=== PATIENT | female | born 1965 | race Caucasian/White ===

== ENCOUNTER 2016-09-16 03:35 | Observation (INO) | payer OTHER ==
[2016-09-16 03:59] VITALS: BP 177/108; PULSE 89; RESP 16; TEMP 98.6; O2SAT 99
[2016-09-16] MEDS ORDERED: Sodium Chloride 0.9% 1,000 ML IV STA ×2 (04:04→06:26)
[2016-09-16 04:25] LABS: BASO % 0.2 % (0.0-2.0); EOS % 0.1 % (0.0-4.0); HEMATOCRIT 42.1 % (34.0-47.0); LYMPH # 1.6 K/uL (1.0-4.3); LYMPH % 11.1 % (20.0-40.0); MEAN CELL VOLUME 97.7 fl (81.0-99.0); MEAN CORPUSCULAR HEMOGLOBIN 33.1 pg (27.0-31.0); MEAN CORPUSCULAR HGB CONC 33.8 g/dL (33.0-37.0); MEAN PLATELET VOLUME 9.7 fl (7.2-11.7); MONO # 1.1 K/uL (0.0-0.8); MONO % 7.3 % (0.0-10.0); NEUT # 11.9 K/uL (1.8-7.0); NEUT % 81.3 % (50.0-75.0); RED CELL DISTRIBUTION WIDTH 13.9 % (11.5-14.5); WHITE BLOOD COUNT 14.6 K/uL (4.8-10.8)
[2016-09-16 04:35] LABS: ALB/GLOB RATIO 1.3 (1.0-2.1); ALKALINE PHOSPHATASE 81 U/L (38-126); ALT/SGPT 28 U/L (9-52); AST/SGOT 29 U/L (14-36); BILIRUBIN,TOTAL 0.6 mg/dl (0.2-1.3); BLOOD UREA NITROGEN 16 mg/dl (7-17); CALCIUM 9.7 mg/dL (8.4-10.2); CARBON DIOXIDE 22 mmol/L (22-30); CHLORIDE 108 mmol/L (98-107); GFR AFRICAN-AMERICAN > 60; GLUCOSE,RANDOM 154 mg/dL (65-105); LIPASE 129 U/L (23-300); POTASSIUM 3.5 MMOL/L (3.6-5.0); SODIUM 148 mmol/l (132-148); TOTAL PROTEIN 8.4 G/DL (6.3-8.2)
--- NOTE | 2016-09-16 05:12 | ED PDOC ---
HPI: Abdomen Time Seen by Provider: 09/16/16 03:54 Chief Complaint (Nursing): GI Problem Chief Complaint (Provider): Abdominal pain History Per: Patient History/Exam Limitations: no limitations Onset/Duration Of Symptoms: Hrs (10) Current Symptoms Are (Timing): Still Present Severity: Moderate Location Of Pain/Discomfort: Diffuse Quality Of Discomfort: "Pain" Additional Complaint(s): Serenity Good is a 51 y/o female, with a past medical history of pancreatitis, asthma, gastritis, and COPD, presenting to the ER on 09/16/2016 with acute abdominal pain x10 hours and n/v/d (non-bloody/non-bilious). Patient reports abdominal pain is diffuse. Patient state she has vomited multiple times today prior to arrival. Denies any associated fever, cough, SOB, or CP. Patient reports not being PO tolerant all day. Past Medical History Reviewed: Historical Data, Nursing Documentation, Vital Signs Vital Signs: Last Vital Signs Temp 98.6 F 09/16/16 03:57 Pulse 89 09/16/16 03:57 Resp 16 09/16/16 03:57 BP 177/108 H 09/16/16 03:57 Pulse Ox 99 09/16/16 11:55 - Medical History PMH: Anxiety, Arthritis, Asthma, Depression, Gastritis, HTN, Hyperlipidemia, Malignancy (Uterine Ca s/p hysterectoly), Pancreatitis - Surgical History Surgical History: Cholecystectomy, Hernia Repair, Tonsillectomy - Family History Family History: States: Unknown Family Hx - Social History Current smoker - smoking cessation education provided: No Alcohol: None Drugs: Denies - Home Medications Home Medications: Ambulatory Orders Medication Instructions Recorded Famotidine [Pepcid] 20 mg PO DAILY #14 tab 03/11/16 ALPRAZolam [Xanax] 1 mg PO BID PRN 03/13/16 Albuterol HFA [Ventolin HFA 90 2 puff IH [id number] 05/14/16 mcg/actuation (8 g)] oxyCODONE/Acetaminophen [Percocet 1 tab PO Q6 #5 tab 06/02/16 5/325 mg Tab] Naproxen [Naprosyn Tab] 375 mg PO Q8 #20 tab 07/04/16 Atorvastatin [Lipitor] 40 mg PO HS 07/20/16 Clopidogrel [Plavix] 75 mg PO DAILY 07/20/16 Ondansetron ODT [Zofran ODT] 1 odt PO TID #20 odt 07/21/16 Ondansetron [Zofran] 4 mg PO Q8H PRN #6 tab 07/21/16 - Allergies Allergies/Adverse Reactions: Allergies Allergy/AdvReac Type Severity Reaction Status Date / Time No Known Allergies Allergy Verified 07/20/16 20:01 Review of Systems ROS Statement: Except As Marked, All Systems Reviewed And Found Negative Constitutional: Negative for: Fever Cardiovascular: Negative for: Chest Pain Respiratory: Negative for: Cough, Shortness of Breath Gastrointestinal: Positive for: Nausea, Vomiting, Abdominal Pain, Diarrhea Physical Exam - Reviewed Nursing Documentation Reviewed: Yes Vital Signs Reviewed: Yes - Physical Exam Appears: Positive for: Uncomfortable Head Exam: Positive for: ATRAUMATIC, NORMOCEPHALIC Skin: Positive for: Normal Color Eye Exam: Positive for: Normal appearance, EOMI, PERRL ENT: Positive for: Other (DMM) Neck: Positive for: Normal, Painless ROM, Supple Cardiovascular/Chest: Positive for: Regular Rate, Rhythm. Negative for: Murmur Respiratory: Positive for: Normal Breath Sounds. Negative for: Respiratory Distress Gastrointestinal/Abdominal: Positive for: Tenderness ((+) diffuse) Extremity: Positive for: Normal ROM. Negative for: Deformity Neurologic/Psych: Positive for: Alert, Oriented (x3), Gait (steady). Negative for: Motor/Sensory Deficits - Laboratory Results Result Diagrams: 09/16/16 04:23 09/16/16 04:23 - ECG O2 Sat by Pulse Oximetry: 99 Medical Decision Making Medical Decision Makin:54 Initial Impression- 51 y/o female with acute abdominal pain, n/v/d in setting of known pancreatitis Initial Plan- * EKG * Morphine 4 mg IV * Sodium Chloride 1,000 ml IV * Pepcid 20 mg IV * Zofran 4 mg IV * Urinalysis 06:12 Pt was re-evaluated, still reports persistent pain. Labs reviewed, elevated white count at 14,000 noted. Will administer Promethazine and Morphine. CT Abd/ Pelvis ordered. Documented by Denise Cortez, acting as a scribe for Arsenio Saini MD. All medical record entries made by the Scribe were at my direction and personally dictated by me. I have reviewed the chart and agree that the record accurately reflects my personal performance of the history, physical exam, medical decision making, and the department course for this patient. I have also personally directed, reviewed, and agree with the discharge instructions and disposition. ED OBSERVATION Date of observation admission: 09/16/16 Time of observation admission: 04:45 - Observation admission statement Patient is being placed in observation because:: Secondary to ED workup - Goals of Observation Goals of observation are:: Labs, CT, re-evaluation. - Progress Note Progress Note: 09/16/16 07:00 Signing pt out to Dr. Maribel MD. Pending CT and re-evaluation. Disposition - Clinical Impression Clinical Impression: Abdominal pain, Gastroenteritis - Patient ED Disposition Is Patient to be Admitted: No - Disposition Disposition: Transfer of Care Disposition Time: 07:00 Condition: FAIR Patient Signed Over To: Vaishnavi López
[2016-09-16 06:07] LABS: RBC URINE 2 /hpf (0-3); URINE BILIRUBIN NEGATIVE (NEGATIVE); URINE BLOOD NEGATIVE (NEGATIVE); URINE COLOR YELLOW (YELLOW); URINE GLUCOSE (UA) NEG (Normal); URINE KETONE NEGATIVE (NEGATIVE); URINE LEUKOCYTE ESTERASE NEG Leu/uL (Negative); URINE PROTEIN NEGATIVE (NEGATIVE); URINE UROBILINOGEN 0.2-1.0 mg/dL (0.2-1.0); WBC URINE 1 /hpf (0-5)
[2016-09-16] MEDS ORDERED: Iohexol 240 (50 ml) PO ONE (06:10)
[2016-09-16] MEDS ORDERED: Promethazine 25 MG in Sodium Chloride 0.9% 50 ML IM STA (06:14)
--- NOTE | 2016-09-16 07:08 | ED PDOC ---
- Laboratory Results Result Diagrams: 09/16/16 04:23 09/16/16 04:23 - ECG O2 Sat by Pulse Oximetry: 99 (RA) Pulse Ox Interpretation: Normal Medical Decision Making Medical Decision Makin signed over to me by gunjan Saini MD pending CT, reassessment. 50 - results reviewed with patient. She was sitting upright at the end of her stretcher. She seemed mad at the male auto design detailer who she blamed for bringing her to the ER and making her have a CT scan that she knew would be normal. She wants the heplock out and to be discharged. Disposition Doctor Will See Patient In The: Office - Clinical Impression Clinical Impression: Abdominal pain - POA Present On Arrival: None - Disposition Disposition: Routine/Home Disposition Time: 11:55 Condition: IMPROVED ED OBSERVATION Discharge: Yes Date of observation admission: 09/16/16 Time of observation admission: 04:45 - Progress Note Progress Note: 09/16/16 11:55 improved. see notes in MDM Additional Comments - Additional Comments Additional Comments: Scribe Attestation Documented by Ankit Albert, acting as a scribe for Vaishnavi López MD. Provider Scribe Attestation All medical record entries made by the Scribe were at my direction and personally dictated by me. I have reviewed the chart and agree that the record accurately reflects my personal performance of the history, physical exam, medical decision making, and the department course for this patient. I have also personally directed, reviewed, and agree with the discharge instructions and disposition.
[2016-09-16] MEDS ORDERED: Iohexol 240 (50 ml) ONE (07:50)
--- NOTE | 2016-09-16 08:15 | CARD ---
APPROVED REPORT EKG Measurement Heart [id number] IN 178P85 [id number] <Conclusion> Normal sinus rhythm Incomplete right bundle branch block Prolonged QT Abnormal ECG
[2016-09-16] MEDS ORDERED: Sodium Chloride 0.9% 50 ML IV ONE (08:54)
[2016-09-16] MEDS ORDERED: Iohexol 300 100 ML IJ ONE (08:54)
--- NOTE | 2016-09-16 10:42 | CT ---
PROCEDURE: CT Abdomen and Pelvis with contrast HISTORY: abd pain COMPARISON: Multiple scans dating back to 2010.. TECHNIQUE: Contrast dose: Radiation dose: Total exam DLP = mGy-cm. FINDINGS: LOWER THORAX: Unremarkable. LIVER: Unremarkable. No gross lesion or ductal dilatation. GALLBLADDER AND BILE DUCTS: Unremarkable. PANCREAS: Unremarkable. No gross lesion or ductal dilatation. SPLEEN: Unremarkable. ADRENALS: Stable 1.8 centimeter right adrenal mass. No left adrenal mass. KIDNEYS AND URETERS: Unremarkable. No hydronephrosis. No solid mass. VASCULATURE: Unremarkable. No aortic aneurysm. BOWEL: Unremarkable. No obstruction. No gross mural thickening. APPENDIX: Normal appendix. PERITONEUM: Unremarkable. No free fluid. No free air. LYMPH NODES: Unremarkable. No enlarged lymph nodes. BLADDER: Unremarkable. REPRODUCTIVE: Hysterectomy. BONES: No acute fracture. OTHER FINDINGS: None. IMPRESSION: No acute pathology.
== END 2016-09-16 11:56 | disposition home or self-care (01) ==
LOC: H.ER 03:35 → H.EROBSV 07:24
PROVIDERS: ADMIT Emergency Medicine; ATTEND Emergency Medicine
DX: K52.9 Noninfective gastroenteritis and colitis, unspecified (principal); E78.5 Hyperlipidemia, unspecified; I10 Essential (primary) hypertension; J45.909 Unspecified asthma, uncomplicated; Z85.42 Personal history of malignant neoplasm of other parts of uterus

== ENCOUNTER 2017-03-31 19:55 | Emergency (ER) | payer OTHER ==
[2017-03-31 20:27] VITALS: RESP 18; TEMP 97.8
--- NOTE | 2017-03-31 20:51 | ED PDOC ---
HPI: Abdomen Time Seen by Provider: 03/31/17 20:31 Chief Complaint (Nursing): GI Problem Chief Complaint (Provider): Abdominal pain History Per: Patient Additional Complaint(s): 52 yo female, denies any PMH (on chart review: HTN, High Cholesterol, Gastritis , Depression, uterine CA and Pancreatitis) presents to ED with complaints of epigastric abdominal pain, associated with nausea and vomiting since 4 pm after eating pork. no fever or chills, no diarrhea. Pt tried taking Zofran ODT and pepcid PO without relief. No chest pain, palpitations or SoB. = Patient was seen 03/28/17 at [facility] and worked up for chest pain. Past Medical History Reviewed: Historical Data, Nursing Documentation, Vital Signs Vital Signs: Last Vital Signs Temp 97.8 F 03/31/17 20:23 Pulse 73 03/31/17 22:09 Resp 18 03/31/17 22:09 BP 122/62 03/31/17 22:09 Pulse Ox 98 03/31/17 22:09 - Medical History PMH: Anxiety, Arthritis, Asthma, Depression, Gastritis, HTN, Hyperlipidemia, Malignancy (Uterine Ca s/p hysterectoly), Pancreatitis - Surgical History Surgical History: Cholecystectomy, Hernia Repair, Tonsillectomy - Family History Family History: States: Unknown Family Hx - Immunization History Hx Tetanus Toxoid Vaccination: No Hx Influenza Vaccination: No Hx Pneumococcal Vaccination: No - Home Medications Home Medications: Ambulatory Orders Medication Instructions Recorded Famotidine [Pepcid] 20 mg PO DAILY #14 tab 03/11/16 ALPRAZolam [Xanax] 1 mg PO BID PRN 03/13/16 Albuterol HFA [Ventolin HFA 90 2 puff IH [id number] 05/14/16 mcg/actuation (8 g)] Atorvastatin [Lipitor] 40 mg PO HS 07/20/16 Clopidogrel [Plavix] 75 mg PO DAILY 07/20/16 Esomeprazole Magnesium [Nexium] 20 mg PO DAILY #20 ecc 04/01/17 Ondansetron ODT [Zofran ODT] 4 mg PO Q6 PRN #10 odt 04/01/17 - Allergies Allergies/Adverse Reactions: Allergies Allergy/AdvReac Type Severity Reaction Status Date / Time No Known Allergies Allergy Verified 03/28/17 10:54 Review of Systems ROS Statement: Except As Marked, All Systems Reviewed And Found Negative Gastrointestinal: Positive for: Nausea, Vomiting, Abdominal Pain Physical Exam - Reviewed Nursing Documentation Reviewed: Yes Vital Signs Reviewed: Yes - Physical Exam Appears: Positive for: Non-toxic, No Acute Distress, Uncomfortable Head Exam: Positive for: ATRAUMATIC, NORMAL INSPECTION, NORMOCEPHALIC Skin: Positive for: Normal Color, Warm, DRY Eye Exam: Positive for: EOMI, Normal appearance, PERRL ENT: Positive for: Normal ENT Inspection Neck: Positive for: Normal, Painless ROM Cardiovascular/Chest: Positive for: Regular Rate, Rhythm Respiratory: Positive for: CNT, Normal Breath Sounds Gastrointestinal/Abdominal: Positive for: Bowel Sounds, Soft, Tenderness ( pigastric) Back: Positive for: Normal Inspection Extremity: Positive for: Normal ROM Neurologic/Psych: Positive for: Alert, Oriented - Laboratory Results Result Diagrams: 03/31/17 21:10 03/31/17 21:10 - ECG O2 Sat by Pulse Oximetry: 99 Medical Decision Making Medical Decision Making: EKG: NSR at 65 bpm, incomplete RBBB, Non specific ST changes, as read by ED MD Pt placed on global risk management director: vitals remain stable IV access established and treatment initiated with Pepcid, Zofran, GI cocktail On re-eval, Pt reports nausea and pain continues. 10 mg Reglan administered with 4 mg Morphine Labs resulted and reviewed with pt who demonstrated full understanding Pt reports pain improved, nausea continues. Phenergan 25 mg IM administered Pt reports nausea and vomiting continue. Additional 4 mg zofran administered. Pt advised admission at this time for intractable nausea/ vomiting and abdominal pain. However, Pt refused. Pt reports she needs to go home to care for her mother, if she is still feeling bad she will come back tomorrow after she arranges care for her. Repeat BP: 148/88 Disposition - Clinical Impression Clinical Impression: Gastritis - Patient ED Disposition Is Patient to be Admitted: No - Disposition Referrals: Lianna MONTANO,MD Mattie [Medical Doctor] - Disposition: Against Medical Advice Disposition Time: 01:03 Condition: STABLE Prescriptions: Esomeprazole Magnesium [Nexium] 20 mg PO DAILY #20 ecc Ondansetron ODT [Zofran ODT] 4 mg PO Q6 PRN #10 odt PRN Reason: Nausea/Vomiting Instructions: Gastritis (ED) Forms: [facility] (Amharic) - POA Present On Arrival: None
[2017-03-31] MEDS ORDERED: Alum-Mag Hydrox-Simethicone Susp (30 mL) PO STA (20:52)
[2017-03-31 21:17] LABS: BASO # 0.1 K/uL (0.0-0.2); BASO % 0.6 % (0.0-2.0); EOS # 0.2 K/uL (0.0-0.7); EOS % 1.3 % (0.0-4.0); HEMATOCRIT 40.9 % (34.0-47.0); LYMPH # 1.8 K/uL (1.0-4.3); LYMPH % 13.9 % (20.0-40.0); MEAN CELL VOLUME 97.7 fl (81.0-99.0); MEAN CORPUSCULAR HEMOGLOBIN 32.4 pg (27.0-31.0); MEAN CORPUSCULAR HGB CONC 33.1 g/dL (33.0-37.0); MEAN PLATELET VOLUME 9.7 fl (7.2-11.7); MONO # 0.9 K/uL (0.0-0.8); MONO % 6.8 % (0.0-10.0); NEUT # 10.2 K/uL (1.8-7.0); NEUT % 77.4 % (50.0-75.0); NRBC % 0.1 % (0.0-0.0); RED CELL DISTRIBUTION WIDTH 13.4 % (11.5-14.5); WHITE BLOOD COUNT 13.1 K/uL (4.8-10.8)
[2017-03-31 21:38] LABS: ALB/GLOB RATIO 1.5 (1.0-2.1); ALKALINE PHOSPHATASE 82 U/L (38-126); ALT/SGPT 29 U/L (9-52); AMYLASE 160 U/L (30-110); AST/SGOT 34 U/L (14-36); BILIRUBIN,TOTAL 0.3 mg/dl (0.2-1.3); BLOOD UREA NITROGEN 16 mg/dl (7-17); CALCIUM 9.8 mg/dL (8.4-10.2); CARBON DIOXIDE 26 mmol/L (22-30); CHLORIDE 106 mmol/L (98-107); GFR AFRICAN-AMERICAN > 60; GLUCOSE,RANDOM 137 mg/dL (65-105); LIPASE 175 U/L (23-300); POTASSIUM 3.4 MMOL/L (3.6-5.0); SODIUM 146 mmol/l (132-148)
[2017-03-31] MEDS ORDERED: Sodium Chloride 0.9% 1,000 ML IV STA (21:47)
[2017-03-31 22:09] VITALS: BP 122/62; PULSE 73
[2017-03-31 22:10] LABS: RBC URINE 5 /hpf (0-3); URINE BACTERIA RARE (<OCC); URINE BILIRUBIN NEGATIVE (NEGATIVE); URINE BLOOD SMALL (NEGATIVE); URINE COLOR AMBER (YELLOW); URINE GLUCOSE (UA) NEG (Normal); URINE KETONE 20 mg/dL (NEGATIVE); URINE LEUKOCYTE ESTERASE NEG Leu/uL (Negative); URINE PROTEIN 30 mg/dL (NEGATIVE); URINE UROBILINOGEN 0.2-1.0 mg/dL (0.2-1.0); WBC URINE 1 /hpf (0-5)
[2017-04-01 01:06] VITALS: O2SAT 99
--- NOTE | 2017-04-02 12:51 | CARD ---
APPROVED REPORT EKG Measurement Heart [id number] VT 150P28 [id number] <Conclusion> Normal sinus rhythm Incomplete right bundle branch block ST & Marked T wave abnormality, consider anterolateral ischemia Prolonged QT Abnormal ECG
== END 2017-04-01 01:26 | disposition left against medical advice (07) ==
LOC: H.ER 19:55
DX: K29.70 Gastritis, unspecified, without bleeding (principal); I10 Essential (primary) hypertension; E78.00 Pure hypercholesterolemia, unspecified; K86.1 Other chronic pancreatitis; C54.1 Malignant neoplasm of endometrium
CPT/HCPCS: 80053; 81003; 82150; 83690; 84484; 85025; 93005; 96361; 96372; 96374; 96375; 96376; 99285; J2270; J2405; J2550; J2765; J7040

== ENCOUNTER 2017-07-20 10:28 | Emergency (ER) | payer OTHER ==
[2017-07-20 10:52] VITALS: BMI 23.8
[2017-07-20] MEDS ORDERED: Sodium Chloride 0.9% 1,000 ML IV STA (11:00)
[2017-07-20] MEDS ORDERED: Iohexol 240 (50 ml) PO ONE (11:05)
[2017-07-20] MEDS ORDERED: Morphine 4 MG/ML VIAL IV ONE (11:07)
--- NOTE | 2017-07-20 11:10 | ED PDOC ---
HPI: Abdomen Time Seen by Provider: 07/20/17 10:46 Chief Complaint (Nursing): Abdominal Pain Chief Complaint (Provider): Abdominal Pain History Per: Family History/Exam Limitations: no limitations Onset/Duration Of Symptoms: Hrs Current Symptoms Are (Timing): Still Present Additional Complaint(s): 52 year old female presents to the emergency department with a complaint of an abdominal pain, vomiting, and diarrhea since 4am. As per family, they were all eating pizza and when patient vomited, that is what she saw. Denies blood in vomit, cough, congestion, runny nose, chest pain, and shortness of breath. No one else is sick in the family. Of note, as per family, patient has experienced similar symptoms in the past and is always diagnosed with gastritis. Past Medical History Reviewed: Historical Data, Nursing Documentation, Vital Signs - Medical History PMH: Anxiety, Arthritis, Asthma, Depression, Gastritis, HTN, Hyperlipidemia, Malignancy (Uterine Ca s/p hysterectoly), Pancreatitis - Surgical History Surgical History: Cholecystectomy, Hernia Repair, Tonsillectomy - Family History Family History: States: Unknown Family Hx - Immunization History Hx Tetanus Toxoid Vaccination: No Hx Influenza Vaccination: No Hx Pneumococcal Vaccination: No - Home Medications Home Medications: Ambulatory Orders Medication Instructions Recorded Famotidine [Pepcid] 20 mg PO DAILY #14 tab 03/11/16 ALPRAZolam [Xanax] 1 mg PO BID PRN 03/13/16 Albuterol HFA [Ventolin HFA 90 2 puff IH [id number] 05/14/16 mcg/actuation (8 g)] Atorvastatin [Lipitor] 80 mg PO HS 07/20/16 Esomeprazole Magnesium [Nexium] 20 mg PO DAILY #20 ecc 04/01/17 Ondansetron ODT [Zofran ODT] 4 mg PO Q6 PRN #10 odt 04/01/17 Prasugrel [Effient] 10 mg PO DAILY 04/02/17 - Allergies Allergies/Adverse Reactions: Allergies Allergy/AdvReac Type Severity Reaction Status Date / Time No Known Allergies Allergy Verified 03/28/17 10:54 Review of Systems ROS Statement: Except As Marked, All Systems Reviewed And Found Negative (As per HPI, otherwise negative) ENT: Negative for: Nose Discharge, Nose Congestion Cardiovascular: Negative for: Chest Pain Respiratory: Negative for: Cough, Shortness of Breath Gastrointestinal: Positive for: Vomiting, Abdominal Pain, Diarrhea. Negative for: Hematochezia Physical Exam - Reviewed Nursing Documentation Reviewed: Yes Vital Signs Reviewed: Yes - Physical Exam Appears: Positive for: Non-toxic, No Acute Distress Head Exam: Positive for: NORMAL INSPECTION Skin: Positive for: Normal Color, Warm, Dry Cardiovascular/Chest: Positive for: Regular Rate, Rhythm. Negative for: Murmur Respiratory: Positive for: Normal Breath Sounds. Negative for: Accessory Muscle Use, Respiratory Distress Gastrointestinal/Abdominal: Positive for: Soft, Tenderness (Diffuse tenderness) . Negative for: Normal Exam Back: Positive for: Normal Inspection. Negative for: L CVA Tenderness, R CVA Tenderness Extremity: Positive for: Normal ROM. Negative for: Pedal Edema Neurologic/Psych: Positive for: Alert, Oriented (x3) - Laboratory Results Result Diagrams: 07/20/17 11:15 07/20/17 11:15 Interpretation Of Abn Labs: no acute - ECG ECG Rhythm: Positive for: Right Bundle Branch Block (incomplete) - Progress ED Course And Treament: 1447: Stable. Dr. Kirby cuevas on ct read. Pt. doing well. Walking around. No nausea/vomit/diarrhea. Medical Decision Making Medical Decision Making: Time: 1102 Initial Impression: Abdominal pain and vomiting Initial Plan: --EKG --CMP --Lipase --Troponin I --Urine DIP --CBC w. diff --Bentyl 10 mg PO --Pepcid 20 mg IVP --Toradol 15 mg IVP --Sodium Chloride 15 mg IVP --Zofran 4 mg IV --Dilaudid 1 mg IV --Reglan 10 mg IV --Morphine 4 mg IV --Abd & pelvis PO & IV Contrast CT --Reevaluation Scribe Attestation: Documented by Abby Torres, acting as a scribe for Anurag Cortez MD. Provider Scribe Attestation: All medical record entries made by the Scribe were at my direction and personally dictated by me. I have reviewed the chart and agree that the record accurately reflects my personal performance of the history, physical exam, medical decision making, and the department course for this patient. I have also personally directed, reviewed, and agree with the discharge instructions and disposition. Disposition - Clinical Impression Clinical Impression: Abdominal discomfort - Patient ED Disposition Is Patient to be Admitted: Transfer of Care - Disposition Disposition Time: 14:48 Condition: STABLE Patient Signed Over To: Kelly Orr
[2017-07-20] MEDS ORDERED: Iohexol 240 (50 ml) ONE (11:28)
[2017-07-20 11:33] LABS: BASO % 0.4 % (0.0-2.0); EOS % 0.2 % (0.0-4.0); HEMOGLOBIN 13.5 g/dL (12.0-16.0); LYMPH # 1.2 K/uL (1.0-4.3); LYMPH % 12.4 % (20.0-40.0); MEAN CELL VOLUME 97.6 fl (81.0-99.0); MEAN CORPUSCULAR HEMOGLOBIN 31.8 pg (27.0-31.0); MEAN CORPUSCULAR HGB CONC 32.6 g/dL (33.0-37.0); MEAN PLATELET VOLUME 9.3 fl (7.2-11.7); MONO # 0.3 K/uL (0.0-0.8); MONO % 3.4 % (0.0-10.0); NEUT # 8.2 K/uL (1.8-7.0); NEUT % 83.6 % (50.0-75.0); NRBC % 0.1 % (0.0-0.0); RBC 4.23 Mil/uL (3.80-5.20); RED CELL DISTRIBUTION WIDTH 13.9 % (11.5-14.5); WHITE BLOOD COUNT 9.9 K/uL (4.8-10.8)
[2017-07-20 11:42] LABS: ALB/GLOB RATIO 1.4 (1.0-2.1); ALBUMIN 4.8 g/dL (3.5-5.0); ALT/SGPT 27 U/L (9-52); AST/SGOT 22 U/L (14-36); BLOOD UREA NITROGEN 16 mg/dl (7-17); CALCIUM 9.8 mg/dL (8.4-10.2); GFR AFRICAN-AMERICAN > 60; GFR NON-AFRICAN AMERICAN > 60; LIPASE 135 U/L (23-300)
[2017-07-20] MEDS ORDERED: Iohexol 300 100 ML IJ ONE (13:55)
[2017-07-20] MEDS ORDERED: Sodium Chloride 0.9% 50 ML IV ONE (13:55)
--- NOTE | 2017-07-20 15:15 | ED PDOC ---
- Laboratory Results Result Diagrams: 07/20/17 11:15 07/20/17 11:15 Medical Decision Making Medical Decision Making: Time: --15:00 Reassess --Patient signed out to the provider by Dr. Cortez pending ER workup, labs, reevaluation, and final disposition 345p Pt upset about length of stay and time for result of CT scan (performed at 2:30) . CT result still pending. She reports feeling better and would like to go home. Advised her to stay until CT resulted in case acute pathology requiring further management, hospitalization, or other treatment. Pt wants to leave anyway, Risks/benefits discussed and she wants to leave anyway. AMA signed. Scribe Attestation: Documented by Trung Ardon acting as a scribe for Kelly Orr MD. Provider Attestation: All medical record entries made by the Scribe were at my direction and personally dictated by me. I have reviewed the chart and agree that the record accurately reflects my personal performance of the history, physical exam, medical decision making, and the department course for this patient. I have also personally directed, reviewed, and agree with the discharge instructions and disposition. Disposition - Clinical Impression Clinical Impression: Abdominal discomfort - POA Present On Arrival: None - Disposition Disposition: AGAINST MEDICAL ADVICE Disposition Time: 15:53 Condition: UNKNOWN Additional Instructions: RETURN TO ER IMMEDIATELY FOR FURTHER EVALUATION OR FOLLOW UP WITH YOUR DOCTOR SOON POSSIBLE Instructions: Abdominal Pain (ED), Against Medical Advice (ED) Against Medical Advice - AMA Patient Left Against Medical Advice: The patient declines admission to the hospital and wishes to leave the Emergency Department. This action is against my medical advice. This decision was made with informed refusal. The patient was told that admission to the hospital is necessary. Explanation of the reasons why were discussed. The risks of leaving were explained to the patient and include, but are not limited to, worsening of known or currently unknown conditions, permanent disability and from undiagnosed or untreated conditions. The patient has the capacity to make this informed decision and understands my explanation of the current medical problem and risks of leaving. The patient voluntarily accepts these risks and signed an AMA form documenting our conversation. The patient was given the opportunity to ask questions and reconsider. The patient was encouraged to return to the Emergency Department at any time for further care.
[2017-07-20 16:42] VITALS: BP 136/85; PULSE 88; RESP 16; O2SAT 100
--- NOTE | 2017-07-20 16:43 | CT ---
PROCEDURE: CT scan abdomen pelvis dated 07/20/2017 HISTORY: Abdominal pain COMPARISON: Comparison made with prior CT scan abdomen pelvis 09/16/2016 TECHNIQUE: Contiguous axial images of the abdomen and pelvis performed following oral and intravenous injection of approximately 95 cc Omnipaque 300 contrast material. Additional 2 dimensional sagittal and coronal reformats generated. Radiation dose: Total exam DLP = 317.4 mGy-cm. This CT exam was performed using one or more of the following dose reduction techniques: Automated exposure control, adjustment of the mA and/or kV according to patient size, and/or use of iterative reconstruction technique. FINDINGS: LOWER THORAX: Mild minor passive/ dependent type atelectasis both posterior lower lung zones. There appears to be some linear/curvilinear scarring changes seen in the left lung base and probably in the middle lobe and lingular regions. Heart size within range of normal. No significant pericardial effusion. LIVER: Liver exhibits normal size measuring approximately 15 point 3 cm in CC dimension. 1 or 2 tiny foci seen within the superior margin of the right lobe liver too small to characterize stable. . . Mild diffuse fatty hepatic infiltration. Portal and splenic veins are opacified. GALLBLADDER AND BILE DUCTS: Gallbladder is physiologically distended. No evidence of intraluminal gallbladder calculi. PANCREAS: The pancreas appears grossly unremarkable. SPLEEN: Spleen demonstrates normal size and attenuation pattern without masses collections or calcifications. . ADRENALS: No change left adrenal nodule measuring approximately 9 mm. KIDNEYS AND URETERS: Kidneys demonstrate symmetric nephrograms. No evidence of nephrolithiasis or hydronephrosis. BLADDER: Urinary bladder is incompletely distended which presumably accounts for slight thick-walled appearance. Possibility of a cystitis not excluded. . REPRODUCTIVE: Unremarkable. Uterus is not seen and presumably has been resected however clinical correlation recommended. APPENDIX: Appendix is not seen with any certainty. No obvious inflammatory changes right lower quadrant of the abdomen to suggest acute appendicitis. BOWEL: Evaluation of the bowel is limited due to incomplete opacification. Stomach is unopacified and underdistended which presumably accounts for slight thick-walled appearance. Visualized loops of small bowel exhibit normal contour and caliber. No evidence of acute mechanical small bowel obstruction with oral contrast material seen extending into the colon to the level of the mid to distal sigmoid colon. No definitive abnormal mural wall thickening is identified. PERITONEUM: Unremarkable. No fluid collection. No free air. LYMPH NODES: Unremarkable. No enlarged lymph nodes. VASCULATURE: Unremarkable. No aortic aneurysm. BONES: Interval progression of degenerative spondylosis with further disc space narrowing at the L4-L5 level. OTHER FINDINGS: None. IMPRESSION: No acute intra abdominal pathology. No change small left adrenal nodule measuring approximately 9 mm. One or 2 tiny foci low-attenuation liver superior aspect right lobe liver too small to characterize stable. The appendix again not visualized however clinical correlation recommended. . . . . Status post hysterectomy.
== END 2017-07-20 16:20 | disposition left against medical advice (07) ==
LOC: H.ER 10:28
DX: R10.9 Unspecified abdominal pain (principal); I45.10 Unspecified right bundle-branch block; E78.5 Hyperlipidemia, unspecified; I10 Essential (primary) hypertension; Z85.42 Personal history of malignant neoplasm of other parts of uterus; Z90.710 Acquired absence of both cervix and uterus
CPT/HCPCS: 74177; 80053; 82948; 83690; 85025; 96374; 99284; J1170; J2405; J2765; J7040; Q9966; Q9967

== ENCOUNTER 2017-07-23 07:05 | Emergency (ER) | payer OTHER ==
[2017-07-23 07:11] VITALS: BMI 20.1
--- NOTE | 2017-07-23 07:40 | ED PDOC ---
HPI: CCC, URI, Sore Throat Time Seen by Provider: 07/23/17 07:15 Chief Complaint (Nursing): Flu-like Symptoms History Per: Patient History/Exam Limitations: no limitations Onset/Duration Of Symptoms: Days (3), Gradual Current Symptoms Are (Timing): Still Present Location Of Pain: Throat, Diffuse Myalgias Sick Contacts (Context): None Associated Symptoms: Fever, Chills, Cough, Myalgias, Nasal Congestion. denies: Sputum, Neck Pain, Sinus Drainage, Nausea, Vomiting, Diarrhea Severity: Moderate Additional History Per: Patient Additional Complaint(s): Pt reports flu like symptoms beginning Saturday including MARINELLI, body aches, fever , N/V. took tylenol 2 hours ago Past Medical History Reviewed: Historical Data, Nursing Documentation, Vital Signs Vital Signs: Last Vital Signs Temp 98.3 F 07/23/17 10:06 Pulse 73 07/23/17 10:06 Resp 20 07/23/17 10:06 BP 129/64 07/23/17 10:06 Pulse Ox 99 07/23/17 10:06 - Medical History PMH: Anxiety, Arthritis, Asthma, Depression, Gastritis, HTN, Hypercholesterolemia, Hyperlipidemia, Malignancy (Uterine Ca s/p hysterectoly), Pancreatitis - Surgical History Surgical History: Cholecystectomy, Hernia Repair, Tonsillectomy - Family History Family History: States: Unknown Family Hx - Living Arrangements Living Arrangements: With Family - Social History Current smoker - smoking cessation education provided: No - Immunization History Hx Tetanus Toxoid Vaccination: No Hx Influenza Vaccination: No Hx Pneumococcal Vaccination: No - Home Medications Home Medications: Ambulatory Orders Medication Instructions Recorded Famotidine [Pepcid] 20 mg PO DAILY #14 tab 03/11/16 ALPRAZolam [Xanax] 1 mg PO BID PRN 03/13/16 Albuterol HFA [Ventolin HFA 90 2 puff IH [id number] 05/14/16 mcg/actuation (8 g)] Atorvastatin [Lipitor] 80 mg PO HS 07/20/16 Esomeprazole Magnesium [Nexium] 20 mg PO DAILY #20 ecc 04/01/17 Ondansetron ODT [Zofran ODT] 4 mg PO Q6 PRN #10 odt 04/01/17 Prasugrel [Effient] 10 mg PO DAILY 04/02/17 Azithromycin [Zithromax] 250 mg PO DAILY 4 Days tab 07/23/17 Oseltamivir Phosphate [Tamiflu] 75 mg PO BID 5 Days capsule 07/23/17 - Allergies Allergies/Adverse Reactions: Allergies Allergy/AdvReac Type Severity Reaction Status Date / Time No Known Allergies Allergy Verified 03/28/17 10:54 Review of Systems ROS Statement: Except As Marked, All Systems Reviewed And Found Negative Constitutional: Positive for: Fever, Chills, Malaise ENT: Positive for: Nose Congestion Cardiovascular: Negative for: Chest Pain, Palpitations Respiratory: Positive for: Cough. Negative for: Shortness of Breath, Sputum Gastrointestinal: Negative for: Nausea, Vomiting, Abdominal Pain Genitourinary Female: Negative for: Dysuria Musculoskeletal: Negative for: Neck Pain Neurological: Positive for: Headache. Negative for: Weakness, Numbness, Incoordination, Change in Speech, Confusion, Altered Mental Status, Dizziness Physical Exam - Reviewed Nursing Documentation Reviewed: Yes Vital Signs Reviewed: Yes - Physical Exam Appears: Positive for: Uncomfortable Head Exam: Positive for: ATRAUMATIC, NORMAL INSPECTION, NORMOCEPHALIC Skin: Positive for: Normal Color, Warm, Dry Eye Exam: Positive for: Normal appearance, EOMI, PERRL ENT: Positive for: Pharynx Is (cml). Negative for: Pharyngeal Erythema, Tonsillar Exudate, Tonsillar Swelling Neck: Positive for: Normal, Painless ROM, Supple Cardiovascular/Chest: Positive for: Regular Rate, Rhythm. Negative for: Chest Non Tender, Edema, Gallop, Murmur, Bradycardia, Tachycardia Respiratory: Positive for: Normal Breath Sounds. Negative for: Decreased Breath Sounds, Accessory Muscle Use, Crackles, Rales, Rhonchi, Stridor, Wheezing , Respiratory Distress, Plerual Rub Gastrointestinal/Abdominal: Positive for: Normal Exam, Bowel Sounds, Soft. Negative for: Tenderness Back: Positive for: Normal Inspection. Negative for: L CVA Tenderness, R CVA Tenderness Extremity: Positive for: Normal ROM. 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 Negative for: Motor/Sensory Deficits, Aphasia, Facial Droop - Laboratory Results Result Diagrams: 07/23/17 08:02 07/23/17 08:02 - ECG ECG: Positive for: Interpreted By Me ECG Rhythm: Positive for: Normal QRS, Normal ST Segment, Sinus Rhythm (59). Negative for: ST/T Changes Interpretation Of Abn EKG: abnml ecg w/o change compared to 07/20/2017 O2 Sat by Pulse Oximetry: 98 Pulse Ox Interpretation: Normal - Radiology X-Ray: Interpreted by Me X-Ray Interpretation: Infiltrates (possible eraly in rml no cardiomegaly) - Progress ED Course And Treament: sx improved will treatment for possible underlying pna with zithromax advise tamiflu, pt sx markedly improved and agree's with plan will leaves in good spirits. Re-evaluation Time: 10:00 Condition: Improved Disposition - Clinical Impression Clinical Impression: Influenza, Pneumonia - Patient ED Disposition Is Patient to be Admitted: No Counseled Patient/Family Regarding: Studies Performed, Diagnosis, Need For Followup, Rx Given - Disposition Referrals: [facility] [Outside] (2 to 3 days) Disposition: Routine/Home Disposition Time: 10:00 Condition: GOOD Prescriptions: Azithromycin [Zithromax] 250 mg PO DAILY 4 Days tab Oseltamivir Phosphate [Tamiflu] 75 mg PO BID 5 Days capsule Instructions: Bacterial Pneumonia (ED), Influenza (ED) Forms: [employer] (Austrian)
[2017-07-23] MEDS: Sodium Chloride 0.9% 1,000 ML IV ONE (07:57)
[2017-07-23 08:07] LABS: BASO % 0.6 % (0.0-2.0); EOS % 0.1 % (0.0-4.0); HEMOGLOBIN 12.7 g/dL (12.0-16.0); LYMPH # 0.3 K/uL (1.0-4.3); LYMPH % 6.1 % (20.0-40.0); MEAN CELL VOLUME 96.3 fl (81.0-99.0); MEAN CORPUSCULAR HEMOGLOBIN 32.5 pg (27.0-31.0); MEAN CORPUSCULAR HGB CONC 33.7 g/dL (33.0-37.0); MEAN PLATELET VOLUME 9.5 fl (7.2-11.7); MONO # 0.4 K/uL (0.0-0.8); MONO % 6.8 % (0.0-10.0); NEUT # 4.6 K/uL (1.8-7.0); NEUT % 86.4 % (50.0-75.0); NRBC % 0.1 % (0.0-0.0); PLATELET COUNT 158 K/uL (130-400); RBC 3.91 Mil/uL (3.80-5.20); WHITE BLOOD COUNT 5.4 K/uL (4.8-10.8)
[2017-07-23 08:24] LABS: INR 1.3 (0.9-1.2); PARTIAL THROMBOPLASTIN TIME 36.3 Seconds (25.6-37.1); PROTHROMBIN TIME 14.1 Seconds (9.8-13.1)
--- NOTE | 2017-07-23 08:27 | CARD ---
APPROVED REPORT EKG Measurement Heart [id number] PA 130P46 [id number] <Conclusion> Normal sinus rhythm Nonspecific T wave abnormality Abnormal ECG
[2017-07-23 08:29] LABS: ALB/GLOB RATIO 1.3 (1.0-2.1); ALBUMIN 4.3 g/dL (3.5-5.0); ALT/SGPT 28 U/L (9-52); AST/SGOT 24 U/L (14-36); BLOOD UREA NITROGEN 11 mg/dl (7-17); GFR AFRICAN-AMERICAN > 60; GFR NON-AFRICAN AMERICAN > 60
[2017-07-23 10:07] VITALS: BP 129/64; PULSE 73; RESP 20; TEMP 98.3
[2017-07-23 10:18] LABS: BANDS 2 % (0-2); BASOPHIL 1 % (0-2); LYMPHOCYTE 11 % (20-50); MONOCYTE 6 % (0-10); NEUTROPHIL 80 % (42-75); TOTAL CELLS COUNTED 100
[2017-07-23 10:21] LABS: PLATELET ESTIMATE NORMAL (NORMAL)
[2017-07-23 11:03] VITALS: O2SAT 98
--- NOTE | 2017-07-23 11:06 | RAD ---
HISTORY: COMPARISON: No prior. TECHNIQUE: Chest PA and lateral FINDINGS: LINES AND TUBES: None. LUNG AND PLEURA: The lungs are hyperinflated and there is peribronchial thickening with chronic changes in both lungs. There is no lobar pneumonia. HEART AND MEDIASTINUM: The heart is not enlarged. The hilar and mediastinal contours are within normal limits. SKELETAL STRUCTURES: The bony structures are within normal limits for the patient's age. VISUALIZED UPPER ABDOMEN: Normal. OTHER FINDINGS: None. IMPRESSION: No active pulmonary disease. COPD.
== END 2017-07-23 11:20 | disposition home or self-care (01) ==
LOC: H.ER 07:05
DX: J11.00 Influenza due to unidentified influenza virus with unspecified type of pneumonia (principal); J18.9 Pneumonia, unspecified organism; E78.00 Pure hypercholesterolemia, unspecified; F32.9 Major depressive disorder, single episode, unspecified; F41.9 Anxiety disorder, unspecified; I10 Essential (primary) hypertension; J44.0 Chronic obstructive pulmonary disease with (acute) lower respiratory infection; K85.90 Acute pancreatitis without necrosis or infection, unspecified; Z85.42 Personal history of malignant neoplasm of other parts of uterus
CPT/HCPCS: 71046; 80053; 83605; 84484; 85025; 85610; 85730; 87070; 87430; 87804; 93005; 96361; 96365; 99285; J0696; J7040

== ENCOUNTER 2017-12-12 20:41 | Emergency (ER) | payer OTHER ==
[2017-12-12 20:41] VITALS: BMI 20.1
[2017-12-12 20:50] VITALS: O2SAT 99
[2017-12-12] MEDS ORDERED: Famotidine 20mg/50ml 20 MG/50 ML BAG IVPB ONE (21:16)
[2017-12-12] MEDS ORDERED: Famotidine 20mg/50ml Premix IVPB STA (21:18)
[2017-12-12] MEDS ORDERED: Sodium Chloride 0.9% 1,000 ML IV STA (21:18)
--- NOTE | 2017-12-12 21:25 | ED PDOC ---
HPI: Abdomen Time Seen by Provider: 12/12/17 21:14 Chief Complaint (Nursing): Abdominal Pain History Per: Patient History/Exam Limitations: no limitations Onset/Duration Of Symptoms: Hrs Outside of [place] travel?: No Current Symptoms Are (Timing): Still Present Context: Food Location Of Pain/Discomfort: Epigastric Quality Of Discomfort: Burning, Stabbing Associated Symptoms: Nausea, Vomiting, Diarrhea Additional Complaint(s): HX of COPD, colon CA s/p resection, gastritis, pancreatitis presenting with epigastric pain, nausea, vomiting, diarrhea, and anxiety. States it started this afternoon, worsened after eating dinner, was associated with 7 episodes of non bloody non bilious vomiting and watery diarrhea. Denies alcohol usage or drugs. Patient poor historian, history obtain mostly from . PMD: patient reports none Past Medical History Reviewed: Historical Data, Nursing Documentation, Vital Signs Vital Signs: Last Vital Signs Temp 97.9 F 12/12/17 20:46 Pulse 69 12/12/17 20:46 Resp 30 H 12/12/17 20:46 BP 149/87 12/12/17 20:46 Pulse Ox 99 12/13/17 00:34 - Medical History PMH: Anxiety, Arthritis, Asthma, Depression, Gastritis, HTN, Hypercholesterolemia, Hyperlipidemia, Malignancy (Uterine Ca s/p hysterectoly), Pancreatitis - Surgical History Surgical History: Cholecystectomy, Hernia Repair, Tonsillectomy - Family History Family History: States: Unknown Family Hx - Immunization History Hx Tetanus Toxoid Vaccination: No Hx Influenza Vaccination: No Hx Pneumococcal Vaccination: No - Home Medications Home Medications: Ambulatory Orders Medication Instructions Recorded Famotidine [Pepcid] 20 mg PO DAILY #14 tab 03/11/16 ALPRAZolam [Xanax] 1 mg PO BID PRN 03/13/16 Albuterol HFA [Ventolin HFA 90 2 puff IH [id number] 05/14/16 mcg/actuation (8 g)] Atorvastatin [Lipitor] 80 mg PO HS 07/20/16 Ondansetron ODT [Zofran ODT] 4 mg PO Q6 PRN #10 odt 04/01/17 Prasugrel [Effient] 10 mg PO DAILY 04/02/17 Metoclopramide [Reglan] 1 tab PO TID PRN #25 tab 07/25/17 Aluminum Hydroxide/Magnesium 30 ml PO BID PRN #1 bottle 10/25/17 [Maalox Plus 30 ml] Omeprazole 20 mg PO DAILY #30 capsule. 12/13/17 - Allergies Allergies/Adverse Reactions: Allergies Allergy/AdvReac Type Severity Reaction Status Date / Time No Known Allergies Allergy Verified 10/25/17 21:20 Review of Systems Constitutional: Negative for: Fever Respiratory: Negative for: Cough Gastrointestinal: Positive for: Nausea, Vomiting, Abdominal Pain, Diarrhea Genitourinary Female: Negative for: Dysuria, Frequency, Incontinence, Hematuria Physical Exam - Reviewed Nursing Documentation Reviewed: Yes Vital Signs Reviewed: Yes - Physical Exam Appears: Positive for: Uncomfortable (wretching) Head Exam: Positive for: ATRAUMATIC, NORMAL INSPECTION, NORMOCEPHALIC Skin: Positive for: Normal Color, Warm, DRY Eye Exam: Positive for: EOMI, Normal appearance, PERRL ENT: Positive for: Normal ENT Inspection Neck: Positive for: Normal, Painless ROM Cardiovascular/Chest: Positive for: Regular Rate, Rhythm Respiratory: Positive for: CNT, Normal Breath Sounds Gastrointestinal/Abdominal: Positive for: Normal Exam, Soft, Tenderness ( epigastric tenderness, no lower abdominal tenderness). Negative for: Organomegaly, Mass, Distended, Guarding, Rebound Back: Positive for: Normal Inspection Extremity: Positive for: Normal ROM Neurologic/Psych: Positive for: Alert, hot patcher II-XII, Oriented. Negative for: Motor/Sensory Deficits - Laboratory Results Result Diagrams: 12/12/17 21:26 12/12/17 21:26 - ECG O2 Sat by Pulse Oximetry: 99 Pulse Ox Interpretation: Normal Medical Decision Making Medical Decision MakinPM A/P: Hx of colon CA, gastritis, COPD, pancreatitis presenting with nausea, vomiting, diarrhea, abdominal pain -patient actively vomiting, uncomfortable appearance -ddx: gerd/gastritis, pancreatitis, colitis, not suspicious for appendicitis or cholecystitis or sbo at this time -will get labs, provide sympomatic care -reeval 11PM -Haldol given for intractable nausea for hyperemesis cannabinoid syndrome 0000 Patient is now feeling much better, tolerating PO, will d/c home. Advised bland diet, fliuds, adn followup with a PMD. Disposition - Clinical Impression Clinical Impression: Gastritis - Patient ED Disposition Is Patient to be Admitted: No - Disposition Referrals: [facility] [Outside] [facility] [place] [Outside] Disposition: Routine/Home Disposition Time: 00:35 Condition: STABLE Prescriptions: Omeprazole 20 mg PO DAILY #30 capsule. Instructions: Gastritis Forms: [employer] (Tanzanian)
[2017-12-12 21:30] LABS: BASO # 0.1 K/uL (0.0-0.2); BASO % 0.5 % (0.0-2.0); EOS # 0.2 K/uL (0.0-0.7); EOS % 1.4 % (0.0-4.0); HEMOGLOBIN 13.8 g/dL (12.0-16.0); LYMPH # 2.7 K/uL (1.0-4.3); LYMPH % 19.7 % (20.0-40.0); MEAN CELL VOLUME 97.2 fl (81.0-99.0); MEAN CORPUSCULAR HEMOGLOBIN 32.8 pg (27.0-31.0); MEAN CORPUSCULAR HGB CONC 33.7 g/dL (33.0-37.0); MEAN PLATELET VOLUME 8.9 fl (7.2-11.7); MONO # 0.8 K/uL (0.0-0.8); MONO % 5.7 % (0.0-10.0); NEUT # 9.8 K/uL (1.8-7.0); NEUT % 72.7 % (50.0-75.0); RBC 4.22 Mil/uL (3.80-5.20); RED CELL DISTRIBUTION WIDTH 13.6 % (11.5-14.5); WHITE BLOOD COUNT 13.5 K/uL (4.8-10.8)
[2017-12-12 21:40] LABS: ALB/GLOB RATIO 1.3 (1.0-2.1); ALBUMIN 4.5 g/dL (3.5-5.0); ALT/SGPT 28 U/L (9-52); AST/SGOT 29 U/L (14-36); BLOOD UREA NITROGEN 15 mg/dl (7-17); CALCIUM 9.6 mg/dL (8.4-10.2); GFR AFRICAN-AMERICAN > 60; GFR NON-AFRICAN AMERICAN > 60; LIPASE 192 U/L (23-300)
[2017-12-13 01:08] VITALS: BP 146/54; PULSE 80; RESP 16; TEMP 98.5
[2017-12-13] MEDS ORDERED: metroNIDAZOLE 500mg/100ml NS 100 ML IVPB ONE (12:30)
== END 2017-12-13 01:10 | disposition home or self-care (01) ==
LOC: H.ER 20:41
DX: K29.70 Gastritis, unspecified, without bleeding (principal); R10.13 Epigastric pain; K85.90 Acute pancreatitis without necrosis or infection, unspecified; Z85.038 Personal history of other malignant neoplasm of large intestine; J44.9 Chronic obstructive pulmonary disease, unspecified; Z85.42 Personal history of malignant neoplasm of other parts of uterus; E78.00 Pure hypercholesterolemia, unspecified; F32.9 Major depressive disorder, single episode, unspecified; F41.9 Anxiety disorder, unspecified; I10 Essential (primary) hypertension
CPT/HCPCS: 80053; 80320; 83690; 85025; 96361; 96365; 96367; 96372; 96375; 99283; J1630; J2060; J2405; J2765; J7030

== ENCOUNTER 2017-12-13 07:14 | Inpatient (IN) | payer OTHER ==
[2017-12-13 07:21] VITALS: BMI 21.9
[2017-12-13] MEDS ORDERED: Famotidine 20mg/50ml Premix IVPB STA (07:35)
[2017-12-13] MEDS ORDERED: Sodium Chloride 0.9% 1,000 ML IV STA (07:36)
--- NOTE | 2017-12-13 07:40 | ED PDOC ---
HPI: Abdomen Time Seen by Provider: 12/13/17 07:21 Chief Complaint (Nursing): Abdominal Pain Chief Complaint (Provider): Abd pain History Per: Patient History/Exam Limitations: no limitations Onset/Duration Of Symptoms: Days (2) Current Symptoms Are (Timing): Still Present Additional Complaint(s): Pt. with abd pain epigastric, nausea, vomit that is nonbloody. Here yesterday night with the same and discharge after feeling better. No imaging done. Pt. here multiple times for the same. No weakness, headaches, dizziness, back pain , chest pain. No fever, cough. No new food. feels like her pancreatitis. Has no pcp or GI doctor. Past Medical History Reviewed: Nursing Documentation, Vital Signs Vital Signs: Last Vital Signs Temp 98.8 F 12/13/17 07:20 Pulse 82 12/13/17 07:20 Resp BP 153/79 H 12/13/17 07:20 Pulse Ox 98 12/13/17 09:59 - Medical History PMH: Anxiety, Arthritis, Asthma, Depression, Gastritis, HTN, Hypercholesterolemia, Hyperlipidemia, Malignancy (Uterine Ca s/p hysterectoly), Pancreatitis - Surgical History Surgical History: Cholecystectomy, Coronary Stent (2), Hernia Repair, Tonsillectomy - Family History Family History: States: Unknown Family Hx - Immunization History Hx Tetanus Toxoid Vaccination: No Hx Influenza Vaccination: No Hx Pneumococcal Vaccination: No - Home Medications Home Medications: Ambulatory Orders Medication Instructions Recorded ALPRAZolam [Xanax] 1 mg PO BID PRN 03/13/16 Albuterol HFA [Ventolin HFA 90 2 puff IH [id number] 05/14/16 mcg/actuation (8 g)] Ondansetron ODT [Zofran ODT] 4 mg PO Q6 PRN #10 odt 04/01/17 Atorvastatin [Lipitor] 10 mg PO HS 12/13/17 Clopidogrel [Plavix] 75 mg PO DAILY 12/13/17 Famotidine [Pepcid] 40 mg PO DAILY 12/13/17 Losartan Potassium [Losartan 25 mg PO DAILY 12/13/17 Potassium] Metoprolol Succinate [Toprol Xl] 25 mg PO DAILY 12/13/17 Omeprazole [Omeprazole] 20 mg PO DAILY 12/13/17 - Allergies Allergies/Adverse Reactions: Allergies Allergy/AdvReac Type Severity Reaction Status Date / Time No Known Allergies Allergy Verified 12/13/17 07:26 Review of Systems ROS Statement: Except As Marked, All Systems Reviewed And Found Negative Gastrointestinal: Positive for: Nausea, Vomiting, Abdominal Pain Physical Exam - Reviewed Nursing Documentation Reviewed: Yes Vital Signs Reviewed: Yes - Physical Exam Appears: Positive for: Uncomfortable Head Exam: Positive for: ATRAUMATIC, NORMAL INSPECTION, NORMOCEPHALIC Skin: Positive for: Normal Color, Warm, DRY Eye Exam: Positive for: EOMI, Normal appearance, PERRL ENT: Positive for: Normal ENT Inspection Neck: Positive for: Normal, Painless ROM Cardiovascular/Chest: Positive for: Regular Rate, Rhythm Respiratory: Positive for: CNT, Normal Breath Sounds Gastrointestinal/Abdominal: Positive for: Soft, Tenderness (epigastric) Back: Positive for: Normal Inspection. Negative for: L CVA Tenderness, R CVA Tenderness Extremity: Positive for: Normal ROM. Negative for: Tenderness Neurologic/Psych: Positive for: Alert, Oriented - Laboratory Results Result Diagrams: 12/13/17 07:51 12/13/17 07:51 Interpretation Of Abn Labs: 0.2770 trop - ECG ECG: Positive for: Interpreted By Me, Viewed By Me ECG Rhythm: Positive for: Sinus Rhythm, ST/T Changes, Nonspecific Changes O2 Sat by Pulse Oximetry: 98 Pulse Ox Interpretation: Normal - CT Scan/US ct Other Rad Studies (CT/US): Read By Radiologist Other Rad Interpretation: colitis - Progress ED Course And Treament: 741: Had an elevated wbc on yesterday. Will ct abd/pelvic with IV as pt. states she won't tolerate po contrast. 820: Dr. Ward pagealla and no response. 900: Dr. Ward paged and pending call back. 945: Spoke with Dr. Llanos who is math interventionist for code [facility]. He reviewed EKG and made aware of presentation/hx. States not a code heart. Admit for further workup. ASA given. 956: Stable. Spoke with Dr. Ward. Wants to see ekg and will discuss case with Dr. Ladd and call back for further medical management plans. 1050: Stable. Will give cipro and flagyl. 1055: Spoke with Dr. Ward. Will give plavix also. Will admit and he will consult. - Critical Care Total Time (In Min): 30 Documented Critical Care: Time excludes all time spent performint seperately billable procedures Disposition - Clinical Impression Clinical Impression: Elevated troponin, Colitis - Patient ED Disposition Is Patient to be Admitted: Yes Counseled Patient/Family Regarding: Studies Performed, Diagnosis - Disposition Disposition Time: 11:00 Condition: STABLE - Pt Status Changed To: Hospital Disposition Of: Inpatient - Admit Certification Admit to Inpatient:: After my assessment, the patient will require hospitalization for at least two midnights. This is because of the severity of symptoms shown, intensity of services needed, and/or the medical risk in this patient being treated as an outpatient. - POA Present On Arrival: None
[2017-12-13] MEDS ORDERED: Famotidine 20mg/50ml 20 MG/50 ML BAG IVPB ONE (07:52)
[2017-12-13 07:54] LABS: BASO % 0.2 % (0.0-2.0); EOS % 0.1 % (0.0-4.0); LYMPH # 0.9 K/uL (1.0-4.3); LYMPH % 9.2 % (20.0-40.0); MEAN CELL VOLUME 96.8 fl (81.0-99.0); MEAN CORPUSCULAR HEMOGLOBIN 32.6 pg (27.0-31.0); MEAN CORPUSCULAR HGB CONC 33.7 g/dL (33.0-37.0); MEAN PLATELET VOLUME 8.7 fl (7.2-11.7); MONO # 0.3 K/uL (0.0-0.8); MONO % 3.5 % (0.0-10.0); NEUT # 8.4 K/uL (1.8-7.0); NRBC % 0.1 % (0.0-0.0); PLATELET COUNT 222 K/uL (130-400); RED CELL DISTRIBUTION WIDTH 13.7 % (11.5-14.5); WHITE BLOOD COUNT 9.6 K/uL (4.8-10.8)
[2017-12-13 08:03] LABS: INR 1.2 (0.9-1.2); PARTIAL THROMBOPLASTIN TIME 35.9 Seconds (25.6-37.1); PROTHROMBIN TIME 12.9 Seconds (9.8-13.1)
[2017-12-13 08:04] LABS: ALB/GLOB RATIO 1.4 (1.0-2.1); ALBUMIN 4.7 g/dL (3.5-5.0); ALT/SGPT 27 U/L (9-52); AST/SGOT 29 U/L (14-36); BLOOD UREA NITROGEN 13 mg/dl (7-17); CALCIUM 9.4 mg/dL (8.4-10.2); GFR AFRICAN-AMERICAN > 60; GFR NON-AFRICAN AMERICAN > 60; LIPASE 89 U/L (23-300)
[2017-12-13] MEDS ORDERED: Iohexol 300 100 ML IJ ONE (08:07)
[2017-12-13] MEDS ORDERED: Sodium Chloride 0.9% 50 ML IV ONE (08:08)
[2017-12-13] MEDS ORDERED: Morphine 4 MG/ML VIAL ONE (08:24)
[2017-12-13 09:14] LABS: LYMPHOCYTE 10 % (20-50); MONOCYTE 1 % (0-10); NEUTROPHIL 89 % (42-75); PLATELET ESTIMATE NORMAL (NORMAL); TOTAL CELLS COUNTED 100
--- NOTE | 2017-12-13 09:20 | CT ---
PROCEDURE: CT Abdomen and Pelvis with contrast HISTORY: pain COMPARISON: Abdomen and pelvis CT with oral and intravenous contrast 07/20/2017. TECHNIQUE: Contrast dose: Omnipaque 300, 95 cc Radiation dose: Total exam DLP = 223.30 mGy-cm. This CT exam was performed using one or more of the following dose reduction techniques: Automated exposure control, adjustment of the mA and/or kV according to patient size, and/or use of iterative reconstruction technique. FINDINGS: LOWER THORAX: Unremarkable. LIVER: Tiny prior lucencies near the dome the liver are not clearly identified currently though they may still be present. The liver is otherwise unremarkable GALLBLADDER AND BILE DUCTS: Unremarkable. PANCREAS: Unremarkable. No gross lesion or ductal dilatation. SPLEEN: Unremarkable. ADRENALS: Stable 9 mm left adrenal nodule the right adrenal gland unremarkable. KIDNEYS AND URETERS: Unremarkable. No hydronephrosis. No solid mass. VASCULATURE: Unremarkable. No aortic aneurysm. BOWEL: The entire large bowel is collapsed limiting evaluation of the wall. Mural thickening is suspected throughout the majority of the colon and colitis of indeterminate etiology is suspected. Consider possible infectious or inflammatory etiology. Clinically correlate further. The small bowel is unremarkable and the stomach is unremarkable as imaged. APPENDIX: The Rib appendix remains nonvisualized. No overt CT evidence to suggest appendicitis at this time. Clinically correlate nevertheless. PERITONEUM: Unremarkable. No free fluid. No free air. LYMPH NODES: Unremarkable. No enlarged lymph nodes. BLADDER: Unremarkable. REPRODUCTIVE: Prior hysterectomy. BONES: No acute fracture. OTHER FINDINGS: None. IMPRESSION: 1. Potential colitis affecting the majority of the colon. Consider infectious or inflammatory causes. Colon is limited evaluation to lack of oral contrast administration as well as diffuse collapse. Though other etiologies are possible and clinical correlation is recommended. No ascites, measure edema or free intraperitoneal gas/abscess. 2. Stable 9 mm left adrenal nodule. 3. Prior hysterectomy reiterated. 4. Potential prior appendectomy. Clinically correlate. The appendix not identified and although there is no CT evidence to suggest appendicitis, clinical correlation is recommended nevertheless.
[2017-12-13 10:50] LABS: BARBITURATES, UR NEGATIVE (NEGATIVE); BENZODIAZEPINES, UR NEGATIVE (NEGATIVE); OPIATES, UR POSITIVE (NEGATIVE); PHENCYCLIDINE, UR NEGATIVE (NEGATIVE)
[2017-12-13] MEDS ORDERED: Ciprofloxacin 400mg/200ml D5W 400 MG/200 ML BAG IV STA (10:57)
[2017-12-13] MEDS ORDERED: metroNIDAZOLE 500mg/100ml NS 100 ML IV STA (10:58)
[2017-12-13] MEDS ORDERED: Ciprofloxacin 400mg/200ml D5W 400 MG/200 ML BAG IVPB ONE (11:09)
--- NOTE | 2017-12-13 12:37 | CARD ---
APPROVED REPORT EXAM: Two-dimensional and M-mode echocardiogram with Doppler and color Doppler. Other Information Quality : FairRhythm : NSR INDICATION ELEVATED TROPONIN RISK FACTORS Hypertension Hyperlipidemia 2D DIMENSIONS IVSd1.04 (0.7-1.1cm)LVDd4.10 (3.9-5.9cm) PWd0.90 (0.7-1.1cm)IVSs1.33 (0.8-1.2cm) LVDs3.79 (2.5-4.0cm)FS (%) 7.5 % PWs0.73 (0.8-1.2cm) M-Mode DIMENSIONS Left Atrium (MM)3.35 (2.5-4.0cm)IVSd0.80 (0.7-1.1cm) Aortic Root2.55 (2.2-3.7cm)LVDd5.25 (4.0-5.6cm) Aortic Cusp Exc.1.67 (1.5-2.0cm)PWd0.64 (0.7-1.1cm) IVSs1.34 cmFS (%) 28 % LVDs3.76 (2.0-3.8cm)PWs0.54 cm Mitral Valve MV E Oxvbpcep55.5cm/sMV A Gcbpaqus68.0cm/sE/A ratio2.0 TDI Lateral E' Peak V9.21cm/sMedial E' Peak V13.44cm/sE/Lateral E'9.4 E/Medial E'6.4 Pulmonary Valve PV Peak Dbjtwctt47.1cm/s Tricuspid Valve TR Peak [id number]/sRAP [id number] Peak Gr.27mmHg [id number] LEFT VENTRICLE The left ventricle is normal size. There is normal left ventricular wall thickness. Left ventricle systolic function is normal. The Ejection Fraction is 60-65%. There is normal LV segmental wall motion. Transmitral Doppler flow pattern is Grade I-abnormal relaxation pattern. RIGHT VENTRICLE The right ventricle is normal size. There is normal right ventricular wall thickness. The right ventricular systolic function is normal. ATRIA The left atrium size is normal. The right atrium size is normal. AORTIC VALVE The aortic valve is normal in structure. No aortic regurgitation is present. There is no aortic valvular stenosis. MITRAL VALVE The mitral valve is normal in structure. There is no evidence of mitral valve prolapse. There is no mitral valve stenosis. Mitral regurgitation is mild. TRICUSPID VALVE The tricuspid valve is normal in structure. There is trace tricuspid regurgitation. Right ventricular systolic pressure is estimated at 42 mmHg. There is mild-moderate pulmonary hypertension. PULMONIC VALVE The pulmonary valve is normal in structure. There is no pulmonic valvular regurgitation. GREAT VESSELS The aortic root is normal in size. The IVC is dilated. The IVC collapses <50% with inspiration. PERICARDIAL EFFUSION The pericardium appears normal. <Conclusion> The left ventricle is normal size. There is normal left ventricular wall thickness. There is normal LV segmental wall motion. Left ventricle systolic function is normal. The Ejection Fraction is 60-65%. Transmitral Doppler flow pattern is Grade I-abnormal relaxation pattern. There is trace tricuspid regurgitation. There is mild-moderate pulmonary hypertension. The IVC is dilated. The IVC collapses <50% with inspiration.
--- NOTE | 2017-12-13 12:40 | CARD ---
APPROVED REPORT EKG Measurement Heart [id number] [place] 202P84 [id number] <Conclusion> Normal sinus rhythm Possible Left atrial enlargement ST & T wave abnormality, consider lateral ischemia Prolonged QT Abnormal ECG
[2017-12-13] MEDS ORDERED: Pneumococcal 23-Valent Vaccine IM ONE (14:59)
--- NOTE | 2017-12-13 15:09 | CP.PCM.CON ---
Past Patient History - Infectious Disease Hx of Infectious Diseases: None - Past Medical History & Family History Past Medical History?: Yes - Past Social History Smoking Status: Heavy Smoker > 10 Cigarettes Daily - CARDIAC Hx Cardiac Disorders: Yes Hx Hypercholesterolemia: Yes Hx Hypertension: Yes - PULMONARY Hx Respiratory Disorders: Yes Hx Asthma: Yes Hx Pneumonia: Yes - NEUROLOGICAL Hx Neurological Disorder: No - HEENT Hx HEENT Problems: No - RENAL Hx Chronic Kidney Disease: No - ENDOCRINE/METABOLIC Hx Endocrine Disorders: No - HEMATOLOGICAL/ONCOLOGICAL Hx Blood Disorders: Yes Hx AIDS: No Hx Human Immunodeficiency Virus (HIV): No - INTEGUMENTARY Hx Dermatological Problems: No - MUSCULOSKELETAL/RHEUMATOLOGICAL Hx Musculoskeletal Disorders: Yes Hx Falls: No - GASTROINTESTINAL Hx Gastrointestinal Disorders: Yes Hx Gastritis: Yes Hx Pancreatitis: Yes - GENITOURINARY/GYNECOLOGICAL Hx Genitourinary Disorders: Yes Hx Ovarian Cancer: Yes - PSYCHIATRIC Hx Psychophysiologic Disorder: Yes Hx Anxiety: Yes Hx Depression: Yes Hx Substance Use: Yes - SURGICAL HISTORY Hx Surgeries: Yes Hx Cholecystectomy: Yes Hx Coronary Stent: Yes (2) Hx Tonsillectomy: Yes - ANESTHESIA Hx Anesthesia: Yes Hx Anesthesia Reactions: No Hx Malignant Hyperthermia: No Has any member of the family had a problem w/ anesthesia?: No Meds Allergies/Adverse Reactions: Allergies Allergy/AdvReac Type Severity Reaction Status Date / Time No Known Allergies Allergy Verified 12/13/17 07:26 Results - Vital Signs Recent Vital Signs: Last Vital Signs Temp 98.5 F 12/13/17 14:02 Pulse 71 12/13/17 14:02 Resp 18 12/13/17 14:32 BP 114/77 12/13/17 14:02 Pulse Ox 97 12/13/17 14:02 - Labs Result Diagrams: 12/13/17 07:51 12/13/17 07:51 Labs: Laboratory Results - last 24 hr 12/13/17 12/13/17 12/13/17 07:51 07:51 07:51 WBC 9.6 RBC 4.00 Hgb 13.0 Hct 38.7 MCV 96.8 MCH 32.6 H MCHC 33.7 RDW 13.7 Plt Count 222 MPV 8.7 Neut % (Auto) 87.0 H Lymph % (Auto) 9.2 L [place] % (Auto) 3.5 Eos % (Auto) 0.1 Baso % (Auto) 0.2 Neut # (Auto) 8.4 H Lymph # (Auto) 0.9 L [place] # (Auto) 0.3 Eos # (Auto) 0.0 Baso # (Auto) 0.0 Neutrophils % (Manual) 89 H Lymphocytes % (Manual) 10 L Monocytes % (Manual) 1 Platelet Estimate Normal RBC Morphology Normal PT 12.9 INR 1.2 APTT 35.9 Sodium 145 Potassium 3.8 Chloride 109 H Carbon Dioxide 22 Anion Gap 18 BUN 13 Creatinine 0.5 L Est GFR ( Amer) > 60 Est GFR (Non-Af Amer) > 60 Random Glucose 174 H Calcium 9.4 Total Bilirubin 0.8 AST 29 ALT 27 Alkaline Phosphatase 79 Troponin I 0.2770 H* Total Protein 8.0 Albumin 4.7 Globulin 3.3 Albumin/Globulin Ratio 1.4 Lipase 89 Urine Opiates Screen Urine Methadone Screen Ur Barbiturates Screen Ur Phencyclidine Scrn Ur Amphetamines Screen U Benzodiazepines Scrn U Oth Cocaine Metabols U Cannabinoids Screen 12/13/17 10:23 WBC RBC Hgb Hct MCV MCH MCHC RDW Plt Count MPV Neut % (Auto) Lymph % (Auto) [place] % (Auto) Eos % (Auto) Baso % (Auto) Neut # (Auto) Lymph # (Auto) [place] # (Auto) Eos # (Auto) Baso # (Auto) Neutrophils % (Manual) Lymphocytes % (Manual) Monocytes % (Manual) Platelet Estimate RBC Morphology PT INR APTT Sodium Potassium Chloride Carbon Dioxide Anion Gap BUN Creatinine Est GFR ( Amer) Est GFR (Non-Af Amer) Random Glucose Calcium Total Bilirubin AST ALT Alkaline Phosphatase Troponin I Total Protein Albumin Globulin Albumin/Globulin Ratio Lipase Urine Opiates Screen Positive H Urine Methadone Screen Negative Ur Barbiturates Screen Negative Ur Phencyclidine Scrn Negative Ur Amphetamines Screen Negative U Benzodiazepines Scrn Negative U Oth Cocaine Metabols Negative U Cannabinoids Screen Positive H Assessment & Plan (1) Colitis, acute Status: Acute (2) CAD (coronary artery disease) Status: Acute (3) Hx of placement of stent in anterior descending branch of left coronary artery Status: Acute (4) HTN (hypertension) Status: Acute (5) Elevated troponin Status: Acute - Assessment and Plan (Free Text) Plan: PT WAS ONLY TAKING ASA AT HOME. START ASA AND PLAVIX. BB'S FOR HR. TREND TROPONINS. PT DOES NOT HAVE CP OR [facility] ABN ON EKG, NO NEED FOR ANTICOAGULATION. ECHO. TELE MONITOR.
--- NOTE | 2017-12-13 16:24 | CP.PCM.HP ---
<Dottie Chao - Last Filed: 12/13/17 23:24> History of Present Illness - History of Present Illness History of Present Illness: 52 yr old F presents to ED with complaint of epigastric abdominal pain, nausea and nonbloody emesis x 2 days. Denies chest pain, fever, dysuria, hematuria, sweating or syncope. PMHx includes hx pancreatitis, uterine cancer s/p hysterectomy, CAD s/p 2 stents, gastritis, hyperlipidemia, intermittent asthma, hypertension, anxiety, depression. Patient reports she has had these symptoms before and its like when she was diagnosed with pancreatitis. [facility] records reviewed, patient has had multiple ER visits for similar symptoms. Denies alcohol or food as possible inciting event. PMD: none PMHx: hx pancreatitis, uterine cancer s/p hysterectomy, CAD s/p 2 stents, gastritis, hyperlipidemia, intermittent asthma, hypertension, anxiety, depression SurgHx: coronary stents x 2, cholecystectomy, hernia repair, tonsillectomy FMHx: noncontributory SocHx: denies tobacco/Etoh or drugs Medications: Metoprolol succinate 25mg PO QD, Lipitor 10mg PO QHS, Plavix 75mg PO QD, Famotidine 40mg PO QD, Losartan 25mg PO QD, Omeprazole 20mg PO QD Allergies: NKDA ED course: vitals stable -EKG: -CBC: within normal limits, no leukocytosis -normal coags -CMP: within normal limits -troponins: 0.2770, 0.4130 -lipase normal -urine toxicology positive for opiates and cannabinoids -CT and/pelvis: potential colitis affecting the majority of the colon, consider infectious vs inflammatory causes -ED tx: Ciprofloxacin 400mg IV, Flagyl 500mg IV once, Aspirin 325mg PO once, Plavix 75mg PO once, Famotidine 20mg IV once, Reglan 10mg IV once, Toradol 15mg IV once, 1L NS IV bolus, Morphine 4mg IV once Present on Admission - Present on Admission Any Indicators Present on Admission: No History of DVT/PE: No History of Uncontrolled Diabetes: No Urinary Catheter: No Decubitus Ulcer Present: No History Surgical Site Infection Following: None Review of Systems - Constitutional Constitutional: absent: Weakness - EENT Eyes: absent: Change in Vision Ears: absent: Dizziness Nose/Mouth/Throat: absent: Sore Throat - Cardiovascular Cardiovascular: absent: Chest Pain, Dyspnea - Respiratory Respiratory: absent: Hemoptysis - Gastrointestinal Gastrointestinal: Abdominal Pain (epigastric), Vomiting - Genitourinary Genitourinary: absent: Difficulty Urinating, Dysuria - Musculoskeletal Musculoskeletal: absent: Back Pain - Integumentary Integumentary: absent: Bleeding Lesions - Neurological Neurological: absent: Syncope - Psychiatric Psychiatric: Anxiety - Endocrine Endocrine: absent: Palpitations, Polydipsia, Polyphagia - Hematologic/Lymphatic Hematologic: absent: Easy Bleeding, Easy Bruising Past Patient History - Infectious Disease Hx of Infectious Diseases: None - Past Medical History & Family History Past Medical History?: Yes - Past Social History Smoking Status: Heavy Smoker > 10 Cigarettes Daily - CARDIAC Hx Cardiac Disorders: Yes Hx Hypercholesterolemia: Yes Hx Hypertension: Yes - PULMONARY Hx Respiratory Disorders: Yes Hx Asthma: Yes Hx Pneumonia: Yes - NEUROLOGICAL Hx Neurological Disorder: No - HEENT Hx HEENT Problems: No - RENAL Hx Chronic Kidney Disease: No - ENDOCRINE/METABOLIC Hx Endocrine Disorders: No - HEMATOLOGICAL/ONCOLOGICAL Hx Blood Disorders: Yes Hx AIDS: No Hx Human Immunodeficiency Virus (HIV): No - INTEGUMENTARY Hx Dermatological Problems: No - MUSCULOSKELETAL/RHEUMATOLOGICAL Hx Musculoskeletal Disorders: Yes Hx Falls: No - GASTROINTESTINAL Hx Gastrointestinal Disorders: Yes Hx Gastritis: Yes Hx Pancreatitis: Yes - GENITOURINARY/GYNECOLOGICAL Hx Genitourinary Disorders: Yes Hx Ovarian Cancer: Yes - PSYCHIATRIC Hx Psychophysiologic Disorder: Yes Hx Anxiety: Yes Hx Depression: Yes Hx Substance Use: Yes - SURGICAL HISTORY Hx Surgeries: Yes Hx Cholecystectomy: Yes Hx Coronary Stent: Yes (2) Hx Tonsillectomy: Yes - ANESTHESIA Hx Anesthesia: Yes Hx Anesthesia Reactions: No Hx Malignant Hyperthermia: No Has any member of the family had a problem w/ anesthesia?: No Meds Allergies/Adverse Reactions: Allergies Allergy/AdvReac Type Severity Reaction Status Date / Time No Known Allergies Allergy Verified 12/13/17 07:26 Physical Exam - Constitutional Appears: No Acute Distress - ENT Exam ENT Exam: Mucous Membranes Moist - Neck Exam Neck exam: Positive for: Full Rom. Negative for: Lymphadenopathy - Respiratory Exam Respiratory Exam: Clear to Auscultation Bilateral, NORMAL BREATHING PATTERN - Cardiovascular Exam Cardiovascular Exam: REGULAR RHYTHM, +S1, +S2 - GI/Abdominal Exam GI & Abdominal Exam: Normal Bowel Sounds, Soft, Tenderness (to palpation moderate in epigastric area) - Extremities Exam Extremities exam: Positive for: full ROM. Negative for: pedal edema - Back Exam Back exam: absent: CVA tenderness (L), CVA tenderness (R) - Neurological Exam Neurological exam: Alert - Psychiatric Exam Psychiatric exam: Flat Affect, Normal Mood - Skin Skin Exam: Dry, Warm Results - Vital Signs Recent Vital Signs: Last Vital Signs Temp 98.5 F 12/13/17 14:02 Pulse 71 12/13/17 14:02 Resp 18 12/13/17 14:32 BP 114/77 12/13/17 14:02 Pulse Ox 97 12/13/17 14:02 - Labs Result Diagrams: 12/13/17 07:51 12/13/17 07:51 Labs: Laboratory Results - last 24 hr 12/13/17 12/13/17 12/13/17 07:51 07:51 07:51 WBC 9.6 RBC 4.00 Hgb 13.0 Hct 38.7 MCV 96.8 MCH 32.6 H MCHC 33.7 RDW 13.7 Plt Count 222 MPV 8.7 Neut % (Auto) 87.0 H Lymph % (Auto) 9.2 L [place] % (Auto) 3.5 Eos % (Auto) 0.1 Baso % (Auto) 0.2 Neut # (Auto) 8.4 H Lymph # (Auto) 0.9 L [place] # (Auto) 0.3 Eos # (Auto) 0.0 Baso # (Auto) 0.0 Neutrophils % (Manual) 89 H Lymphocytes % (Manual) 10 L Monocytes % (Manual) 1 Platelet Estimate Normal RBC Morphology Normal PT 12.9 INR 1.2 APTT 35.9 Sodium 145 Potassium 3.8 Chloride 109 H Carbon Dioxide 22 Anion Gap 18 BUN 13 Creatinine 0.5 L Est GFR ( Amer) > 60 Est GFR (Non-Af Amer) > 60 Random Glucose 174 H Calcium 9.4 Total Bilirubin 0.8 AST 29 ALT 27 Alkaline Phosphatase 79 Troponin I 0.2770 H* Total Protein 8.0 Albumin 4.7 Globulin 3.3 Albumin/Globulin Ratio 1.4 Lipase 89 Urine Opiates Screen Urine Methadone Screen Ur Barbiturates Screen Ur Phencyclidine Scrn Ur Amphetamines Screen U Benzodiazepines Scrn U Oth Cocaine Metabols U Cannabinoids Screen 12/13/17 10:23 WBC RBC Hgb Hct MCV MCH MCHC RDW Plt Count MPV Neut % (Auto) Lymph % (Auto) [place] % (Auto) Eos % (Auto) Baso % (Auto) Neut # (Auto) Lymph # (Auto) [place] # (Auto) Eos # (Auto) Baso # (Auto) Neutrophils % (Manual) Lymphocytes % (Manual) Monocytes % (Manual) Platelet Estimate RBC Morphology PT INR APTT Sodium Potassium Chloride Carbon Dioxide Anion Gap BUN Creatinine Est GFR ( Amer) Est GFR (Non-Af Amer) Random Glucose Calcium Total Bilirubin AST ALT Alkaline Phosphatase Troponin I Total Protein Albumin Globulin Albumin/Globulin Ratio Lipase Urine Opiates Screen Positive H Urine Methadone Screen Negative Ur Barbiturates Screen Negative Ur Phencyclidine Scrn Negative Ur Amphetamines Screen Negative U Benzodiazepines Scrn Negative U Oth Cocaine Metabols Negative U Cannabinoids Screen Positive H Assessment & Plan - Assessment and Plan (Free Text) Assessment: 52 yr old F admitted for colitis and elevated troponin. PMHx includes hx pancreatitis, uterine cancer s/p hysterectomy, CAD s/p 2 stents, gastritis, hyperlipidemia, intermittent asthma, hypertension, anxiety, depression. Plan: -admit to telemetry -Cardiology on consult: echocardiogram, plavix 225mg PO once; start daily ASA/ plavix/beta mikel -heart healthy diet -continue home medications - Date & Time Date: 12/13/17 Time: 11:00 <Anup Maki - Last Filed: 12/15/17 19:48> Results - Vital Signs Recent Vital Signs: Last Vital Signs Temp 98.3 F 12/14/17 08:09 Pulse 66 12/14/17 09:19 Resp 18 12/14/17 08:09 BP 114/52 L 12/14/17 09:19 Pulse Ox 99 12/14/17 08:09 - Labs Result Diagrams: 12/14/17 08:20 12/14/17 08:20 Assessment & Plan - Assessment and Plan (Free Text) Plan: I was present during evaluation and discussed with Dr Chao re plans of care and mgt. Anup Maki M.D.
[2017-12-13] MEDS: Albuterol HFA 90 mcg/actuation (8 g) IH SCH ×2 (16:33→21:00)
[2017-12-14 00:43] VITALS: O2SAT 99
[2017-12-14] MEDS: Albuterol HFA 90 mcg/actuation (8 g) IH SCH (03:00)
[2017-12-14 05:10] VITALS: RESP 18
[2017-12-14 08:09] VITALS: BP 114/52; TEMP 98.3
--- NOTE | 2017-12-14 08:42 | CARD ---
APPROVED REPORT EKG Measurement Heart [id number] <Conclusion> Sinus bradycardia Left axis deviation Incomplete right bundle branch block T wave abnormality, consider inferolateral ischemia Prolonged QT Abnormal ECG
[2017-12-14] MEDS ORDERED: Metoprolol Succinate 25 mg XL Tab PO SCH (09:00)
[2017-12-14 09:07] LABS: HEMOGLOBIN 12.6 g/dL (12.0-16.0); MEAN CELL VOLUME 97.2 fl (81.0-99.0); MEAN CORPUSCULAR HEMOGLOBIN 32.6 pg (27.0-31.0); MEAN CORPUSCULAR HGB CONC 33.6 g/dL (33.0-37.0); RBC 3.85 Mil/uL (3.80-5.20); RED CELL DISTRIBUTION WIDTH 13.7 % (11.5-14.5); WHITE BLOOD COUNT 11.4 K/uL (4.8-10.8)
[2017-12-14 09:14] LABS: BLOOD UREA NITROGEN 13 mg/dl (7-17); CALCIUM 9.2 mg/dL (8.4-10.2); GFR AFRICAN-AMERICAN > 60; GFR NON-AFRICAN AMERICAN > 60; HDL CHOLESTEROL 41 MG/DL (30-70)
[2017-12-14 09:20] VITALS: PULSE 66
[2017-12-14 09:22] LABS: LDL CHOLESTEROL 71 mg/dL (0-129)
--- NOTE | 2017-12-14 11:30 | CP.PCM.DIS ---
Provider - Provider Date of Admission: 12/13/17 10:55 Attending physician: Anup Maki MD Time Spent in preparation of Discharge (in minutes): 15 Hospital Course - Lab Results Lab Results: Most Recent Lab Values WBC 11.4 K/uL (4.8-10.8) H 12/14/17 08:20 RBC 3.85 Mil/uL (3.80-5.20) 12/14/17 08:20 Hgb 12.6 g/dL (12.0-16.0) 12/14/17 08:20 Hct 37.4 % (34.0-47.0) 12/14/17 08:20 MCV 97.2 fl (81.0-99.0) 12/14/17 08:20 MCH 32.6 pg (27.0-31.0) H 12/14/17 08:20 MCHC 33.6 g/dL (33.0-37.0) 12/14/17 08:20 RDW 13.7 % (11.5-14.5) 12/14/17 08:20 Plt Count 183 K/uL (130-400) 12/14/17 08:20 MPV 8.7 fl (7.2-11.7) 12/13/17 07:51 Neut % (Auto) 87.0 % (50.0-75.0) H 12/13/17 07:51 Lymph % (Auto) 9.2 % (20.0-40.0) L 12/13/17 07:51 [place] % (Auto) 3.5 % (0.0-10.0) 12/13/17 07:51 Eos % (Auto) 0.1 % (0.0-4.0) 12/13/17 07:51 Baso % (Auto) 0.2 % (0.0-2.0) 12/13/17 07:51 Neut # (Auto) 8.4 K/uL (1.8-7.0) H 12/13/17 07:51 Lymph # (Auto) 0.9 K/uL (1.0-4.3) L 12/13/17 07:51 [place] # (Auto) 0.3 K/uL (0.0-0.8) 12/13/17 07:51 Eos # (Auto) 0.0 K/uL (0.0-0.7) 12/13/17 07:51 Baso # (Auto) 0.0 K/uL (0.0-0.2) 12/13/17 07:51 Neutrophils % (Manual) 89 % (42-75) H 12/13/17 07:51 Lymphocytes % (Manual) 10 % (20-50) L 12/13/17 07:51 Monocytes % (Manual) 1 % (0-10) 12/13/17 07:51 Platelet Estimate Normal (NORMAL) 12/13/17 07:51 RBC Morphology Normal (NORMAL) 12/13/17 07:51 PT 12.9 Seconds (9.8-13.1) 12/13/17 07:51 INR 1.2 (0.9-1.2) 12/13/17 07:51 APTT 35.9 Seconds (25.6-37.1) 12/13/17 07:51 Sodium 142 mmol/l (132-148) 12/14/17 08:20 Potassium 3.3 MMOL/L (3.6-5.0) L 12/14/17 08:20 Chloride 105 mmol/L (98-107) 12/14/17 08:20 Carbon Dioxide 28 mmol/L (22-30) 12/14/17 08:20 Anion Gap 12 (10-20) 12/14/17 08:20 BUN 13 mg/dl (7-17) 12/14/17 08:20 Creatinine 0.7 mg/dl (0.7-1.2) 12/14/17 08:20 Est GFR ( Amer) > 60 12/14/17 08:20 Est GFR (Non-Af Amer) > 60 12/14/17 08:20 Random Glucose 98 mg/dL (65-105) 12/14/17 08:20 Calcium 9.2 mg/dL (8.4-10.2) 12/14/17 08:20 Magnesium 2.0 MG/DL (1.6-2.3) 12/14/17 08:20 Total Bilirubin 0.8 mg/dl (0.2-1.3) 12/13/17 07:51 AST 29 U/L (14-36) 12/13/17 07:51 ALT 27 U/L (9-52) 12/13/17 07:51 Alkaline Phosphatase 79 U/L (38-126) 12/13/17 07:51 Troponin I 0.3160 ng/mL (0.00-0.120) H* 12/13/17 22:58 Total Protein 8.0 G/DL (6.3-8.2) 12/13/17 07:51 Albumin 4.7 g/dL (3.5-5.0) 12/13/17 07:51 Globulin 3.3 gm/dL (2.2-3.9) 12/13/17 07:51 Albumin/Globulin Ratio 1.4 (1.0-2.1) 12/13/17 07:51 Triglycerides 95 mg/DL (0-149) 12/14/17 08:20 Cholesterol 141 mg/dL (0-199) 12/14/17 08:20 LDL Cholesterol Direct 71 mg/dL (0-129) 12/14/17 08:20 HDL Cholesterol 41 MG/DL (30-70) 12/14/17 08:20 Lipase 89 U/L (23-300) 12/13/17 07:51 Urine Opiates Screen Positive (NEGATIVE) H 12/13/17 10:23 Urine Methadone Screen Negative (NEGATIVE) 12/13/17 10:23 Ur Barbiturates Screen Negative (NEGATIVE) 12/13/17 10:23 Ur Phencyclidine Scrn Negative (NEGATIVE) 12/13/17 10:23 Ur Amphetamines Screen Negative (NEGATIVE) 12/13/17 10:23 U Benzodiazepines Scrn Negative (NEGATIVE) 12/13/17 10:23 U Oth Cocaine Metabols Negative (NEGATIVE) 12/13/17 10:23 U Cannabinoids Screen Positive (NEGATIVE) H 12/13/17 10:23 - Hospital Course Hospital Course: This is a 52 y/o female with significant hx of CAD post stent few months ago presented with abd pain mostly epigastric,. Her troponins were elevated but EKG showed nonspecific changes. She was advised to stay in the hospital but refused and instead opted to go home and follow up with her private Warehouse Super[employer]. She had no chest pain on discharge, She was given copy of lab reports and was given Protonix and advised to continue all medications from home. Discharge Exam - Head Exam Head Exam: ATRAUMATIC, NORMAL INSPECTION, NORMOCEPHALIC - Eye Exam Eye Exam: Normal appearance - Respiratory Exam Respiratory Exam: NORMAL BREATHING PATTERN - Cardiovascular Exam Cardiovascular Exam: REGULAR RHYTHM - GI/Abdominal Exam GI & Abdominal Exam: Normal Bowel Sounds - Neurological Exam Neurological exam: CN II-XII Intact, Oriented x3 - Psychiatric Exam Psychiatric exam: Normal Mood Discharge Plan - Follow Up Plan Condition: STABLE Disposition: HOME/ ROUTINE Additional Instructions: She was advised to return to ER in the event that chest pain recurs. Otherwise she she will follow up with her Warehouse Supervisor closely. anup Maki M.D.
== END 2017-12-14 11:45 | disposition home or self-care (01) | DRG 814 ==
LOC: H.ER 07:14 → H.ERHOLD 10:55 → H.TEL 14:01
PROVIDERS: ADMIT Family Medicine; ATTEND Family Medicine
DX: K52.9 Noninfective gastroenteritis and colitis, unspecified (principal); J45.20 Mild intermittent asthma, uncomplicated